=== PATIENT | male | born 2000 | race Hispanic/Latino ===

== ENCOUNTER 2024-07-10 11:22 | Inpatient (IN) | payer SELFPAY ==
[2024-07-10] MEDS ORDERED: Sodium Chloride 0.9% 2.5 ML Syringe FLUSH PRN (12:06)
[2024-07-10] MEDS ORDERED: Sodium Chloride 0.9% 10 ML Syringe FLUSH PRN (12:06)
[2024-07-10] MEDS ORDERED: Sodium Chloride 0.9% 20 ML SDV IV PRN (12:06)
[2024-07-10 12:54] LABS: BASOPHILS ABSOLUTE AUTO 0.04 K/uL (0.00-0.20); BASOPHILS PERCENT AUTO 0.2 % (0.0-1.0); EOSINOPHILS ABSOLUTE AUTO 0.33 K/uL (0.00-0.45); EOSINOPHILS PERCENT AUTO 2.1 % (0.0-6.0); HEMATOCRIT 39.8 % (42.0-52.0); HEMOGLOBIN 13.8 g/dL (14.0-18.0); IMMATURE GRAN ABSOLUTE AUTO 0.05 K/uL (0.00-0.05); IMMATURE GRAN PERCENT AUTO 0.3 % (0.0-0.4); LYMPHOCYTES PERCENT AUTO 6.9 % (24.0-44.0); MEAN CORPUSCULAR HEMOGLOBIN 30.5 pg (28.0-32.0); MEAN CORPUSCULAR HGB CONC 34.7 g/dL (32.0-36.0); MEAN CORPUSCULAR VOLUME 87.9 fL (83.0-99.0); MEAN PLATELET VOLUME 9.3 fL (9.4-12.4); MONOCYTES PERCENT AUTO 6.2 % (0.0-8.0); NEUTROPHILS ABSOLUTE AUTO 13.53 K/uL (1.80-7.70); NEUTROPHILS PERCENT AUTO 84.3 % (41.0-71.0); PLATELET COUNT,PLT 259 K/uL (150-400); RED BLOOD CELL COUNT 4.53 M/uL (4.52-5.90); WHITE BLOOD CELL COUNT,WBC 16.05 K/uL (3.9-11.3)
[2024-07-10 13:08] LABS: INR 1.08 (0.86-1.11); PTT,PARTIAL THROMBOPLSTIN TIME 27.3 SEC (23.9-30.7)
[2024-07-10 13:22] LABS: A/G RATIO 0.9 (0.9-1.6); ALANINE AMINOTRANSFERASE,ALT 18 IU/L (14-63); ALBUMIN 3.4 g/dL (3.4-5.0); ALKALINE PHOSPHATASE 91 U/L (46-116); ASPARTATE AMNIOTRANSFERASE,AST 17 IU/L (15-37); BILIRUBIN TOTAL 1.1 mg/dL (0.2-1.0); BLOOD UREA NITROGEN,BUN 8 mg/dL (7.0-18.0); CALCIUM 7.8 mg/dL (8.5-10.1); CARBON DIOXIDE,CO2 21.9 mmol/L (21.0-32.0); CHLORIDE,CL 108 mmol/L (98-107); CREATINE KINASE,CK 114 U/L (26-308); CREATININE 0.8 mg/dL (0.8-1.3); EST CRCL DRUG DOSING (CG) 136.56 mL/min; GLUCOSE RANDOM 83 mg/dL (74-106); MAGNESIUM 1.8 mg/dL (1.8-2.4); POTASSIUM,K 3.6 mmol/L (3.5-5.1); SODIUM,NA 141 mmol/L (136-148)
[2024-07-10 13:24] LABS: ESTIMATED GFR 129 mL/min (>60)
[2024-07-10 14:00] LABS: LACTIC ACID 1.4 mmol/L (0.4-2.0)
[2024-07-10 14:21] LABS: CORONAVIRUS COVID-19 NAA NEGATIVE (NEGATIVE); INFLUENZA A NAA NEGATIVE (NEGATIVE); INFLUENZA B NAA NEGATIVE (NEGATIVE)
[2024-07-10 14:57] LABS: APPEARANCE,URINE CLEAR; BILIRUBIN,URINE NEGATIVE (NEGATIVE); COLOR,URINE YELLOW; GLUCOSE,URINE NEGATIVE (NEGATIVE); KETONES,URINE 15 mg/dL (NEGATIVE); LEUKOCYTE ESTERASE,URINE NEGATIVE (NEGATIVE); NITRITE,URINE NEGATIVE (NEGATIVE); OCCULT BLOOD,URINE NEGATIVE (NEGATIVE); PROTEIN,URINE NEGATIVE (NEGATIVE)
[2024-07-10 15:07] LABS: AMPHETAMINES SCREEN, URINE NEGATIVE (CUTOFF=500); BARBITURATE SCREEN,URINE NEGATIVE (CUTOFF=200); BENZODIAZEPINES SCREEN,URINE NEGATIVE (CUTOFF=150); BUPRENORPHINE SCREEN,URINE NEGATIVE (CUTOFF=10); METHADONE SCREEN, URINE NEGATIVE (CUTOFF=200); METHAMPHETAMINES SCREEN, URINE NEGATIVE (CUTOFF=500); OXYCODONE SCREEN,URINE NEGATIVE (CUT0FF=100); PCP SCREEN,URINE NEGATIVE (CUTOFF=25); THC SCREEN,URINE 20 NG/ML NEGATIVE (CUTOFF=50)
[2024-07-10] MEDS ORDERED: Naloxone 0.4 MG/ML SDV IVPUSH PRN ×2 (15:57→21:49)
[2024-07-10] MEDS: Morphine 2 MG/ML SYRINGE IVPUSH ONE (17:04)
[2024-07-10] MEDS: cefTRIAXone 2 GM in Water For Injection, Sterile 20 ML IVPUSH ONE (17:06)
[2024-07-10] MEDS: Sodium Chloride 0.9% 1,000 ML IV ONE (17:23)
[2024-07-10 20:03] LABS: APPEARANCE CSF CLEAR; COLOR,CSF COLORLESS; RBC,CSF 1 /uL (0-0); WBC,CSF 3 /uL (0-5)
[2024-07-10] MEDS: Lidocaine 1% 10 ML MDV INJECT ONE (20:43)
[2024-07-10] MEDS ORDERED: Albuterol/Ipratropium 3.0-0.5 MG/3 ML Neb Soln NEB PRN (21:49)
[2024-07-10] MEDS ORDERED: Ondansetron 4 MG/2 ML SDV IVPUSH PRN (21:49)
[2024-07-10] MEDS ORDERED: Melatonin 3 MG Tab PO PRN (21:49)
[2024-07-10] MEDS ORDERED: Ketorolac 30 MG/ML SDV IVPUSH PRN (21:49)
[2024-07-10] MEDS ORDERED: Polyethylene Glycol 3350 Powder 17 GM Packet PO PRN (21:49)
[2024-07-10] MEDS ORDERED: Acetaminophen 650 MG Supp RECTAL PRN (21:49)
[2024-07-10] MEDS ORDERED: HYDROmorphone 0.5 MG/0.5 ML Syringe IVPUSH PRN (21:49)
[2024-07-10] MEDS: Azithromycin 500 MG in Sodium Chloride 0.9% 250 ML IV SCH (22:15)
[2024-07-10] MEDS: Piperacillin/Tazobactam 4.5 GM in Sodium Chloride 0.9% 100 ML IV SCH (22:16)
[2024-07-10] MEDS: VANCOmycin 1.5 GM in Sodium Chloride 0.9% 250 ML IV ONE (22:17)
[2024-07-11] MEDS: VANCOmycin 1.25 GM in Sodium Chloride 0.9% 250 ML IV SCH (05:30)
[2024-07-11 06:10] LABS: BASOPHILS ABSOLUTE AUTO 0.01 K/uL (0.00-0.20); BASOPHILS PERCENT AUTO 0.1 % (0.0-1.0); HEMATOCRIT 40.8 % (42.0-52.0); HEMOGLOBIN 14.1 g/dL (14.0-18.0); IMMATURE GRAN ABSOLUTE AUTO 0.03 K/uL (0.00-0.05); IMMATURE GRAN PERCENT AUTO 0.2 % (0.0-0.4); LYMPHOCYTES PERCENT AUTO 7.2 % (24.0-44.0); MEAN CORPUSCULAR HEMOGLOBIN 30.7 pg (28.0-32.0); MEAN CORPUSCULAR HGB CONC 34.6 g/dL (32.0-36.0); MEAN CORPUSCULAR VOLUME 88.7 fL (83.0-99.0); MEAN PLATELET VOLUME 9.4 fL (9.4-12.4); MONOCYTES ABSOLUTE AUTO 0.59 K/uL (0.00-0.80); MONOCYTES PERCENT AUTO 4.2 % (0.0-8.0); NEUTROPHILS ABSOLUTE AUTO 12.32 K/uL (1.80-7.70); NEUTROPHILS PERCENT AUTO 88.3 % (41.0-71.0); PLATELET COUNT,PLT 281 K/uL (150-400); WHITE BLOOD CELL COUNT,WBC 13.95 K/uL (3.9-11.3)
[2024-07-11] MEDS: Sodium Chloride 0.9% 1,000 ML IV SCH ×2 (06:23→14:45)
[2024-07-11 06:48] LABS: A/G RATIO 0.8 (0.9-1.6); ALBUMIN 3.3 g/dL (3.4-5.0); BILIRUBIN TOTAL 0.9 mg/dL (0.2-1.0); C-REACTIVE PROTEIN 12.33 mg/dL (<0.3); CALCIUM 8.4 mg/dL (8.5-10.1); CARBON DIOXIDE,CO2 22.5 mmol/L (21.0-32.0); CREATININE 0.9 mg/dL (0.8-1.3); EST CRCL DRUG DOSING (CG) 121.39 mL/min; POTASSIUM,K 3.9 mmol/L (3.5-5.1); PROTEIN TOTAL,TP 7.4 g/dL (6.4-8.2)
[2024-07-11] MEDS: Sodium Chloride 0.65% Nasal Spray 45 ML Bottle NAS SCH (14:33)
[2024-07-11] MEDS: Fluticasone NASAL Spray 16 GM Bottle NASBOTH SCH (14:34)
[2024-07-12 06:07] LABS: BASOPHILS ABSOLUTE AUTO 0.04 K/uL (0.00-0.20); BASOPHILS PERCENT AUTO 0.4 % (0.0-1.0); EOSINOPHILS PERCENT AUTO 0.9 % (0.0-6.0); HEMOGLOBIN 13.8 g/dL (14.0-18.0); IMMATURE GRAN ABSOLUTE AUTO 0.05 K/uL (0.00-0.05); IMMATURE GRAN PERCENT AUTO 0.4 % (0.0-0.4); LYMPHOCYTES ABSOLUTE AUTO 2.75 K/uL (1.00-4.80); LYMPHOCYTES PERCENT AUTO 24.3 % (24.0-44.0); MEAN CORPUSCULAR HEMOGLOBIN 30.1 pg (28.0-32.0); MEAN CORPUSCULAR HGB CONC 33.7 g/dL (32.0-36.0); MEAN CORPUSCULAR VOLUME 89.5 fL (83.0-99.0); MEAN PLATELET VOLUME 9.6 fL (9.4-12.4); MONOCYTES ABSOLUTE AUTO 0.84 K/uL (0.00-0.80); MONOCYTES PERCENT AUTO 7.4 % (0.0-8.0); NEUTROPHILS ABSOLUTE AUTO 7.55 K/uL (1.80-7.70); NEUTROPHILS PERCENT AUTO 66.6 % (41.0-71.0); PLATELET COUNT,PLT 276 K/uL (150-400); RED BLOOD CELL COUNT 4.58 M/uL (4.52-5.90); WHITE BLOOD CELL COUNT,WBC 11.33 K/uL (3.9-11.3)
[2024-07-12 06:41] LABS: A/G RATIO 0.8 (0.9-1.6); ALBUMIN 2.9 g/dL (3.4-5.0); BILIRUBIN TOTAL 0.5 mg/dL (0.2-1.0); C-REACTIVE PROTEIN 4.35 mg/dL (<0.3); CALCIUM 8.3 mg/dL (8.5-10.1); CREATININE 0.8 mg/dL (0.8-1.3); EST CRCL DRUG DOSING (CG) 136.56 mL/min; MAGNESIUM 1.9 mg/dL (1.8-2.4); POTASSIUM,K 3.7 mmol/L (3.5-5.1); PROTEIN TOTAL,TP 6.5 g/dL (6.4-8.2)
[2024-07-12] MEDS: Acetaminophen 325 MG Tab PO PRN (09:30)
[2024-07-12] MEDS: Ondansetron 4 MG Tab.DIS PO ONE (12:45)
[2024-07-12] MEDS: Ondansetron 4 MG Tab.DIS ONE (12:49)
[2024-07-12] MEDS ORDERED: VANCOmycin 1.5 GM in Sodium Chloride 0.9% 250 ML IV SCH (13:30)
[2024-07-13 08:08] LABS: BORDETELLA PARAPERT IS1001 Not Detected (Not Detected)
[2024-07-14 20:48] LABS: QNTIFERON MITOGEN MIN NIL 3.53 IU/mL; QNTIFERON NIL 0.01 IU/mL; QNTIFERON PLUS TB1 MINUS NIL 0.03 IU/mL (<=0.34); QNTIFERON TB GOLD PLUS Negative (Negative)
== END 2024-07-12 13:30 | disposition home or self-care (01) | DRG 152 ==
LOC: EDBD 11:22 → MW.ED 11:22 → MW.ICU 20:24
PROVIDERS: ADMIT Family Medicine; ATTEND Family Medicine
DX: J01.90 Acute sinusitis, unspecified (principal); J18.9 Pneumonia, unspecified organism; J21.9 Acute bronchiolitis, unspecified; R51.9 Headache, unspecified; E86.0 Dehydration; R26.9 Unspecified abnormalities of gait and mobility; J45.909 Unspecified asthma, uncomplicated; Z90.49 Acquired absence of other specified parts of digestive tract; Z79.899 Other long term (current) drug therapy
CPT/HCPCS: 0240U; 36415; 62270; 70450; 70450-26; 71045; 71045-26; 71250; 71250-26; 72125; 72125-26; 80053; 80202; 80305; 80307; 81003; 82550; 82945; 83605; 83735; 84157; 84484; 85025; 85610; 85730; 86140; 86480; 86788; 87040; 87070; 87205; 87486; 87581; 87633; 87641; 89050; 93005; 96361; 96365; 96375; 99283; 99285-25; A9270-GY; J0133; J0456; J0696; J1100; J2003; J2270; J2543; J3371; J7030; J7050